=== PATIENT | female | born 1945 | race Caucasian/White ===

== ENCOUNTER 2017-11-08 12:13 | Emergency (ER) | payer OTHER ==
[~2017-11-08] VITALS: Ht 170.2 cm; Wt 72.6 kg
== END 2017-11-08 14:20 | disposition home or self-care (01) ==
LOC: ER 12:13
DX: R05 Cough (principal)

== ENCOUNTER 2023-02-13 10:09 | Outpatient (CLI) | payer OTHER | END 2023-02-13 10:26 | disposition home or self-care (01) | LOC: MAMO-SONO 10:09 | PROVIDERS: ATTEND Specialist | DX: Z12.31 Encounter for screening mammogram for malignant neoplasm of breast (principal) ==

== ENCOUNTER 2024-08-07 18:11 | Emergency (ER) | payer OTHER ==
[~2024-08-07] VITALS: Ht 160 cm; Wt 63.5 kg
[2024-08-07 18:29] VITALS: BP 160/70; O2SAT 99
[2024-08-07] MEDS ORDERED: LIPITOR40 M1 (18:29)
[2024-08-07 19:16] LABS: HEMATOCRIT 39.2 % (36.0-45.00); HEMOGLOBIN 13.2 g/dL (12.0-15.00); MEAN CELL VOLUME 94.6 fL (80.00-100.00); MEAN CORPUSCULAR HEMOGLOBIN 31.9 pg (27.00-32.0); MEAN CORPUSCULAR HGB CONC 33.7 g/dl (32.0-36.0); PLATELET COUNT 324 K/uL (150-450); RED BLOOD COUNT 4.14 M/uL (4.00-6.00)
[2024-08-07 19:57] LABS: PH,URINE 6.5 (5.0-8.0); URINE APPEARANCE Clear; URINE BILIRRUBIN Negative (NEGATIVE); URINE BLOOD Negative; URINE COLOR Yellow; URINE GLUCOSE Negative (NEGATIVE); URINE KETONE Negative (NEGATIVE); URINE LEUKOCYTE Small; URINE NITRATE Negative; URINE PROTEIN Negative (NEGATIVE); URINE UROBILINOGEN 0.2 E.U./dl
[2024-08-07 20:01] LABS: URINE BACTERIA 230.4 uL (0.0-1933); URINE EPITHELIAL CELLS 6.1 uL (0.0-38.8); URINE RBC 4.7 uL (0.0-20.8); URINE WBC 8.4 uL (0.0-23.2)
[2024-08-07 20:10] LABS: CALCIUM 9.8 mg/dL (8.5-10.1); CREATININE SERUM 0.81 mg/dL (0.55-1.02); GFR 68.56; POTASSIUM 3.97 mEq/L (3.5-5.1)
== END 2024-08-07 21:19 | disposition home or self-care (01) ==
LOC: ER 18:13
PROVIDERS: Emergency Medicine
DX: R53.81 Other malaise (principal); R42 Dizziness and giddiness